=== PATIENT | male | born 1980 | race Caucasian/White ===

== ENCOUNTER 2016-05-11 16:43 | Emergency (ER) | payer OTHER ==
[~2016-05-11] VITALS: Wt 108.9 kg
[~2016-05-11 16:43] MED LIST: ALBUTEROL0.09 MG/A2 IH; CIPROFLOXACIN500 MG PO; CONCERTA36 MG PO; NAPROSYN500 MG PO; NKHM; PREDNISONE20 MG PO; PROVENTIL0.09 MG/AC IH; ROBITUSSIN AC 10 MG/ PO; ROBITUSSIN AC 110 ML PO; SKELAXIN800 MG PO; TRAMADOL HCL50 MG PO; VYVANSE40 MG PO; VYVANSE50 MG PO; ZITHROMAX Z PA250 MG PO; ZYRTEC10 M1 PO
[2016-05-11] MEDS ORDERED: VITAMIN E WATE400 I2 PO (16:53)
[2016-05-11] MEDS ORDERED: MEDROL DOSEPAK4 MG PO (17:33)
== END 2016-05-11 18:09 | disposition home or self-care (01) ==
LOC: ED 16:43
DX: L23.7 Allergic contact dermatitis due to plants, except food (principal); Z79.899 Other long term (current) drug therapy

== ENCOUNTER → 2016-05-16 | Outpatient (CLI) | payer OTHER ==
[~2016-05-16] MED LIST changes: +MEDROL DOSEPAK4 MG PO; +VITAMIN E WATE400 I2 PO
== END | disposition home or self-care (01) ==
LOC: ORTHO 01:58
DX: M25.512 Pain in left shoulder (principal); R53.1 Weakness

== ENCOUNTER → 2016-06-13 | Day surgery (SDC) | payer OTHER | END | disposition home or self-care (01) | LOC: MRI 06-09 14:00 | DX: M25.312 Other instability, left shoulder (principal) ==

== ENCOUNTER 2016-10-12 20:21 | Emergency (ER) | payer OTHER ==
[~2016-10-12] VITALS: Ht 172.7 cm; Wt 90.7 kg
[2016-10-12] MEDS ORDERED: Motrin,Rufen800 MG PO (21:55)
[2016-10-12] MEDS ORDERED: FLAGYL500 MG PO (21:55)
[2016-10-12] MEDS ORDERED: KEFLEX500 M1 PO (21:55)
== END 2016-10-12 22:44 | disposition home or self-care (01) ==
LOC: ED 20:21
DX: L03.031 Cellulitis of right toe (principal); Z79.899 Other long term (current) drug therapy

== ENCOUNTER 2017-03-24 14:14 | Emergency (ER) | payer OTHER ==
[~2017-03-24] VITALS: Ht 175.2 cm; Wt 81.6 kg
[~2017-03-24 14:14] MED LIST changes: +FLAGYL500 MG PO; +KEFLEX500 M1 PO; +Motrin,Rufen800 MG PO
[2017-03-24] MEDS ORDERED: TRAMADOL HCL50 MG PO (15:45)
== END 2017-03-24 15:50 | disposition home or self-care (01) ==
LOC: ED 14:14
DX: S62.631A Displaced fracture of distal phalanx of left index finger, initial encounter for closed fracture (principal); Z79.899 Other long term (current) drug therapy; W22.8XXA Striking against or struck by other objects, initial encounter; Y93.89 Activity, other specified; Y92.89 Other specified places as the place of occurrence of the external cause; Y99.8 Other external cause status

== ENCOUNTER → 2017-07-10 | Outpatient (CLI) | payer OTHER | END | disposition home or self-care (01) | LOC: CT 15:58 | DX: G44.52 New daily persistent headache (NDPH) (principal) ==

== ENCOUNTER 2018-02-08 14:23 | Emergency (ER) | payer OTHER ==
[2018-02-08] MEDS ORDERED: FLONASE ALLERG9.9 ML NAS (15:44)
[2018-02-08] MEDS ORDERED: PREDNISONE50 MG PO (15:44)
[2018-02-08] MEDS ORDERED: ROBITUSSIN DM 105 ML PO (15:44)
== END 2018-02-08 15:52 | disposition home or self-care (01) ==
LOC: ED 14:23
DX: J01.90 Acute sinusitis, unspecified (principal); F17.200 Nicotine dependence, unspecified, uncomplicated; Z79.899 Other long term (current) drug therapy

== ENCOUNTER 2018-02-21 18:58 | Emergency (ER) | payer OTHER ==
[~2018-02-21] VITALS: Ht 172.7 cm; Wt 104.3 kg
[~2018-02-21 18:58] MED LIST changes: +FLONASE ALLERG9.9 ML NAS; +PREDNISONE50 MG PO; +ROBITUSSIN DM 105 ML PO
[2018-02-21] MEDS ORDERED: CYCLOBENZAPRINE10 MG PO (19:06)
[2018-02-21] MEDS ORDERED: IBU800 MG PO (19:06)
== END 2018-02-21 19:19 | disposition home or self-care (01) ==
LOC: ED 18:58
DX: M54.5 Low back pain (principal); Z79.899 Other long term (current) drug therapy; X50.1XXA Overexertion from prolonged static or awkward postures, initial encounter; Y93.89 Activity, other specified; Y92.091 Bathroom in other non-institutional residence as the place of occurrence of the external cause; Y99.8 Other external cause status

== ENCOUNTER 2019-11-06 22:11 | Emergency (ER) | payer OTHER ==
[~2019-11-06] VITALS: Ht 172.7 cm; Wt 115.7 kg
[~2019-11-06 22:11] MED LIST changes: +CYCLOBENZAPRINE10 MG PO; +IBU800 MG PO
[2019-11-06] MEDS ORDERED: ZITHROMAX250 MG PO (22:56)
== END 2019-11-06 23:26 | disposition home or self-care (01) ==
LOC: ED 22:11
DX: J32.9 Chronic sinusitis, unspecified (principal); Z20.828 Contact with and (suspected) exposure to other viral communicable diseases; Z79.899 Other long term (current) drug therapy

== ENCOUNTER 2023-08-23 16:53 | Emergency (ER) | payer OTHER ==
[~2023-08-23] VITALS: Ht 172.7 cm; Wt 117.0 kg
[~2023-08-23 16:53] MED LIST changes: +ZITHROMAX250 MG PO
[2023-08-23] MEDS ORDERED: Lidocaine Hydrochloride 2% 10 ML AMP SC ONE (18:05)
[2023-08-23] MEDS ORDERED: CEPHALEXIN 500 MG CAP PO ONE (18:05)
[2023-08-23] MEDS ORDERED: Acetaminophen/Hydrocodone 5 MG/325 MG TABLET PO ONE (18:05)
[2023-08-23] MEDS ORDERED: NAPROSYN500 MG PO (20:08)
[2023-08-23] MEDS ORDERED: CEPHALEXIN500 M1 PO (20:08)
== END 2023-08-23 20:29 | disposition home or self-care (01) ==
LOC: ED 16:53
DX: L60.0 Ingrowing nail (principal); L03.011 Cellulitis of right finger; Z79.2 Long term (current) use of antibiotics; Z79.899 Other long term (current) drug therapy; Z96.22 Myringotomy tube(s) status